=== PATIENT | male | born 1985 | race Caucasian/White ===

== ENCOUNTER → 2018-09-29 | Outpatient (REF) | payer OTHER, BC ==
[2018-09-30 08:49] LABS: MONO SCRN NEGATIVE (NEGATIVE)
[2018-10-02 15:52] LABS: Lyme Disease IgG Ab 18 kDa Ban Present (.); Lyme Disease IgG Ab 23 kDa Ban Absent (.); Lyme Disease IgG Ab 28 kDa Ban Absent (.); Lyme Disease IgG Ab 30 kDa Ban Absent (.); Lyme Disease IgG Ab 39 kDa Ban Present (.); Lyme Disease IgG Ab 41 kDa Ban Present (.); Lyme Disease IgG Ab 45 kDa Ban Absent (.); Lyme Disease IgG Ab 58 kDa Ban Present (.); Lyme Disease IgG Ab 66 kDa Ban Absent (.); Lyme Disease IgG Ab 93 kDa Ban Absent (.); Lyme Disease IgG West Blot Int Negative (.); Lyme Disease IgG/IgM Antibodie 2.38 ISR (0.00-0.90); Lyme Disease IgM Ab 23 kDa Ban Present (.); Lyme Disease IgM Ab 39 kDa Ban Absent (.); Lyme Disease IgM Ab 41 kDa Ban Absent (.); Lyme Disease IgM Ab Quantitati <0.80 index (0.00-0.79); Lyme Disease IgM West Blot Int Negative (.)
== END ==
LOC: M LAB REF 16:14
PROVIDERS: ATTEND Family Medicine
DX: R53.83 Other fatigue (principal); R51 Headache; R11.0 Nausea

== ENCOUNTER → 2018-10-30 | Outpatient (REF) | payer OTHER ==
[2018-10-30 13:39] LABS: BASO # 0.1 10^3/uL (0.0-0.2); BASO % 1.2 % (0.0-1.0); EOS # 0.1 10^3/uL (0.0-0.50); EOS % 1.4 % (0.0-3.0); HEMATOCRIT 44.5 % (42.0-52.0); LYMPH # 1.8 10^3/uL (1.5-4.5); MEAN CORPUSCULAR HEMOGLOBIN 29.9 pg (27.0-33.0); MEAN CORPUSCULAR HGB CONC 33.7 g/dl (32.0-36.5); MEAN CORPUSCULAR VOLUME 88.6 fl (80.0-96.0); MONO # 0.5 10^3/uL (0.0-0.8); MONO % 10.7 % (0.0-5.0); NEUTROPHILS # 1.9 10^3/uL (1.8-7.7); NEUTROPHILS % 44.5 % (36.0-66.0); PLATELET COUNT, AUTOMATED 222 10^3/uL (150-450); RED BLOOD COUNT 5.02 10^6/uL (4.30-6.10); WHITE BLOOD COUNT 4.2 10^3/uL (4.0-10.0)
[2018-10-30 14:35] LABS: ERYTHROCYTE SEDIMENTATION RATE 2 mm/hr (0-15)
== END ==
LOC: M SFHCPLAZ 10:21
PROVIDERS: ATTEND Internal Medicine Infectious Disease
DX: A69.20 Lyme disease, unspecified (principal)

== ENCOUNTER 2018-12-23 15:08 | Emergency (ER) | payer BC, OTHER ==
[~2018-12-23] VITALS: Ht 175.3 cm; Wt 90.1 kg
[2018-12-23] MEDS ORDERED: DOXY100C37 PO (15:57)
[2018-12-23] MEDS ORDERED: SULF1TAB93 PO (15:57)
[2018-12-23] MEDS ORDERED: PROBCAP14 PO (15:58)
[2018-12-23] MEDS ORDERED: ASPIRIN 81 MG CHEW TABLET PO ONE (17:00)
--- NOTE | 2018-12-23 17:38 | REP ---
Chest two views HISTORY: Chest pain Comparison: 05/16/2011 The lungs are clear. The heart is normal in size. The pulmonary vasculature is normal in appearance. The bony structure is intact. IMPRESSION: No acute disease. Electronically Signed by Nicholas Issa MD 12/23/2018 05:29 P
[2018-12-23 17:41] LABS: BASO # 0.1 10^3/uL (0.0-0.2); BASO % 1.8 % (0.0-1.0); EOS # 0.1 10^3/uL (0.0-0.50); HEMATOCRIT 47.5 % (42.0-52.0); HEMOGLOBIN 16.1 g/dl (13.5-17.5); LYMPH # 2.7 10^3/uL (1.5-4.5); LYMPH % 36.4 % (24.0-44.0); MEAN CORPUSCULAR HEMOGLOBIN 30.3 pg (27.0-33.0); MEAN CORPUSCULAR HGB CONC 33.9 g/dl (32.0-36.5); MEAN CORPUSCULAR VOLUME 89.3 fl (80.0-96.0); MONO # 0.6 10^3/uL (0.0-0.8); MONO % 8.1 % (0.0-5.0); NEUTROPHILS # 3.8 10^3/uL (1.8-7.7); NEUTROPHILS % 52.3 % (36.0-66.0); PLATELET COUNT, AUTOMATED 258 10^3/uL (150-450); RED BLOOD COUNT 5.32 10^6/uL (4.30-6.10); WHITE BLOOD COUNT 7.3 10^3/uL (4.0-10.0)
[2018-12-23 18:06] LABS: ALBUMIN 4.7 GM/DL (3.2-5.2); ALT/SGPT 41 U/L (12-78); BILIRUBIN,DIRECT < 0.1 MG/DL (0.0-0.2); BILIRUBIN,TOTAL 0.4 MG/DL (0.2-1.0); BLOOD UREA NITROGEN 12 MG/DL (7-18); CALCIUM LEVEL 9.7 MG/DL (8.5-10.1); CARBON DIOXIDE LEVEL 27 MEQ/L (21-32); CHLORIDE LEVEL 105 MEQ/L (98-107); CPK CREATINE PHOSPHOKINASE 197 U/L (39-308); CREATININE FOR GFR 1.13 MG/DL (0.70-1.30); GLOMERULAR FILTRATION RATE > 60.0 (>60); GLUCOSE, FASTING 79 MG/DL (70-100); MB/CK RELATIVE INDEX 1.12 (< OR =4); POTASSIUM SERUM 4.2 MEQ/L (3.5-5.1); SODIUM LEVEL 140 MEQ/L (136-145); THYROID STIMULATING HORMONE 0.748 uIU/ML (0.358-3.740); TOTAL PROTEIN 8.4 GM/DL (6.4-8.2); TROPONIN I < 0.02 NG/ML (< 0.10)
[2018-12-23 18:15] LABS: INR 1.1; PROTHROMBIN TIME 14.3 SECONDS (12.1-14.4)
[2018-12-23 18:24] VITALS: BP 120/65
--- NOTE | 2018-12-24 07:49 | ECGEPIP ---
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
== END 2018-12-23 18:29 | disposition home or self-care (01) ==
LOC: M ED 15:08
DX: R07.89 Other chest pain (principal); R06.02 Shortness of breath; F41.0 Panic disorder [episodic paroxysmal anxiety]; Z79.899 Other long term (current) drug therapy; Z79.2 Long term (current) use of antibiotics; Z88.0 Allergy status to penicillin; Z91.030 Bee allergy status

== ENCOUNTER → 2019-01-16 | Outpatient (REF) | payer OTHER ==
[~2019-01-16] MED LIST: DOXY100C37 PO; PROBCAP14 PO; SULF1TAB93 PO
== END ==
LOC: M LAB REF 12:09
PROVIDERS: ATTEND Family Medicine
DX: A69.20 Lyme disease, unspecified (principal); E78.00 Pure hypercholesterolemia, unspecified

== ENCOUNTER → 2019-03-31 | Outpatient (REF) | payer OTHER | LOC: M LAB REF 13:43 | PROVIDERS: ATTEND Family Medicine | DX: G31.84 Mild cognitive impairment of uncertain or unknown etiology (principal); H53.8 Other visual disturbances ==

== ENCOUNTER 2021-04-18 22:22 | Day surgery (SDC) | payer BC, OTHER ==
[~2021-04-18] VITALS: Ht 175.3 cm; Wt 96.3 kg
[~2021-04-18 22:22] MED LIST changes: +BACTDSTA PO; -DOXY100C37 PO; +DOXY1CAP62 PO; -SULF1TAB93 PO
[2021-04-19] VITALS (7 sets, daily range): BP systolic 114–131; BP diastolic 68–84
[2021-04-19 01:16] LABS: BASO # 0.1 10^3/uL (0.0-0.2); BASO % 0.4 % (0.0-1.0); EOS # 0.1 10^3/uL (0.0-0.5); EOS % 0.4 % (0.0-3.0); HEMATOCRIT 44.9 % (42.0-52.0); HEMOGLOBIN 15.6 g/dl (13.5-17.5); LYMPH # 2.7 10^3/uL (1.5-5.0); LYMPH % 19.5 % (24.0-44.0); MEAN CORPUSCULAR HEMOGLOBIN 30.7 pg (27.0-33.0); MEAN CORPUSCULAR HGB CONC 34.7 g/dl (32.0-36.5); MEAN CORPUSCULAR VOLUME 88.4 fl (80.0-96.0); MONO # 1.4 10^3/uL (0.0-0.8); MONO % 10.3 % (2.0-8.0); NEUTROPHILS # 9.6 10^3/uL (1.5-8.5); PLATELET COUNT, AUTOMATED 222 10^3/uL (150-450); RED BLOOD COUNT 5.08 10^6/uL (4.30-6.10); WHITE BLOOD COUNT 13.9 10^3/uL (4.0-10.0)
[2021-04-19] MEDS ORDERED: ISOVUE-370 76% 100ML VIAL As Ordered ONE (01:45)
[2021-04-19 02:19] LABS: ALBUMIN 4.4 GM/DL (3.2-5.2); ALT/SGPT 110 U/L (12-78); BILIRUBIN,DIRECT 0.1 MG/DL (0.0-0.2); BILIRUBIN,TOTAL 0.5 MG/DL (0.2-1.0); BLOOD UREA NITROGEN 16 MG/DL (7-18); CALCIUM LEVEL 9.4 MG/DL (8.5-10.1); CARBON DIOXIDE LEVEL 30 MEQ/L (21-32); CHLORIDE LEVEL 103 MEQ/L (98-107); CREATININE FOR GFR 1.05 MG/DL (0.70-1.30); GLOMERULAR FILTRATION RATE > 60.0 (>60); GLUCOSE, FASTING 98 MG/DL (70-100); LIPASE 140 U/L (73-393); POTASSIUM SERUM 4.1 MEQ/L (3.5-5.1); SODIUM LEVEL 137 MEQ/L (136-145); TOTAL PROTEIN 7.8 GM/DL (6.4-8.2)
--- NOTE | 2021-04-19 03:49 | REPVR ---
PROCEDURE INFORMATION: Exam: CT Abdomen And Pelvis With Contrast Exam date and time: 04/19/2021 1:33 AM Age: 35 years old Clinical indication: Abdominal pain; Localized; Right lower quadrant (rlq); Additional info: Rlq pain R/O appendicitis TECHNIQUE: Imaging protocol: Computed tomography of the abdomen and pelvis with contrast. Radiation optimization: All CT scans at this facility use at least one of these dose optimization techniques: automated exposure control; mA and/or kV adjustment per patient size (includes targeted exams where dose is matched to clinical indication); or iterative reconstruction. Contrast material: ISO; Contrast volume: 100 ml; Contrast route: INTRAVENOUS (IV); COMPARISON: CR Chest, 2 view PA, Lat 12/23/2018 5:27 PM FINDINGS: Liver: Normal. No mass. Gallbladder and bile ducts: Normal. No calcified stones. No ductal dilation. Pancreas: Normal. No ductal dilation. Spleen: Normal. No splenomegaly. Adrenal glands: Normal. No mass. Kidneys and ureters: Normal. No hydronephrosis. Stomach and bowel: Mild diverticulosis without diverticulitis. Appendix: There is abnormal thickening of the appendix measuring up to 1 cm with adjacent inflammatory change. No drainable fluid collection. Intraperitoneal space: Trace free fluid within the pelvis. No drainable fluid collection. Vasculature: Unremarkable. No abdominal aortic aneurysm. Lymph nodes: Unremarkable. No enlarged lymph nodes. Urinary bladder: Unremarkable as visualized. Reproductive: Unremarkable as visualized. Bones/joints: Unremarkable. No acute fracture. Soft tissues: Small fat containing umbilical hernia. IMPRESSION: Positive for acute appendicitis without evidence of rupture. Electronically signed by: Vamshi Taylor On 04/19/2021 03:49:00 AM
[2021-04-19] MEDS ORDERED: metroNIDAZOLE 500 MG in IV 1 EA IV ONE (04:05)
[2021-04-19] MEDS ORDERED: CIPROFLOXACIN 400 MG in IV 1 EA IV ONE (04:05)
[2021-04-19] MEDS ORDERED: NS 1,000 ML IV SCH (04:05)
[2021-04-19] MEDS ORDERED: HOME MED LIST COMPLETE! XX SCH (04:20)
[2021-04-19] MEDS ORDERED: ONDANSETRON 4MG/2ML VIAL IV PRN ×2 (04:45→19:05)
[2021-04-19] MEDS ORDERED: PERCOCET 5MG/325MG TAB PO PRN (04:45)
[2021-04-19] MEDS ORDERED: MORPHINE 2 MG/ML 1ML VIAL (J2270) IV PRN ×2 (04:45→19:05)
[2021-04-19] MEDS: LR 1,000 ML IV SCH ×3 (07:02→20:17)
--- NOTE | 2021-04-19 08:53 | HPEPDOC ---
General Surgery H&P Date of Admission Apr 19, 2021 Attending Physician: CHANO NICHOLAS MD History and Physical CHIEF COMPLAINT: abdominal pain HISTORY OF PRESENT ILLNESS: Patient is a healthy 35-year-old male who presented to the emergency room with about a 24-hour history of ongoing abdominal pain and discomfort. Reports started about midnight early Saturday. This started this morning epigastric discomfort that he has had previously. This persisted through the bleach maker and later on started moving towards the right lower quadrant area. He reports the pain is mostly a discomfort that is constant but worsens with movement. Some slight bloating but is able to pass gas. He was able to tolera te small amount of food intake without any exacerbation of the pain, nausea or vomiting or diarrhea but reports slight anorexia. Denies any fevers or chills. Denies any similar symptoms from family members. With the persistence of the discomfort he went to the emergency room at about midnight Saturday. ALLERGIES: Please see below. HOME MEDICATIONS: Please see below. PAST MEDICAL HISTORY: Denies any chronic medical problems. Reports prior Lyme's disease PAST SURGICAL HISTORY: 1. Lasik surgery. PERSONAL/SOCIAL HISTORY: Denies smoking, alcohol use, or recreational drug use. Reports recently his gave . 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 REVIEW OF SYSTEMS: GENERAL: Overall in good health, denies chills, fatigue, fever, weight gain and weight loss. HEENT: Denies blurred vision and double vision. Denies ear symptoms. Denies hoarseness. NECK: Denies any neck pain. CARDIOVASCULAR: Denies chest pain and palpitations. MUSCULOSKELETAL: Denies arthralgias, back pain and thrombophlebitis. SKIN: Denies rash. NEUROLOGIC: Denies headache, stroke and transient ischemic attack. PSYCHIATRIC: Denies anxiety and depression. ENDOCRINE: Denies thyroid disease. HEMATOLOGY/ONCOLOGY: Denies any bleeding or clotting disorder. HEART: Denies any chest pains, palpitations, paroxysmal dyspnea, orthopnea. PULMONARY: Denies chronic cough, dyspnea and wheezing. GASTROINTESTINAL: See HPI. GENITOURINARY: Denies dysuria, frequency, hematuria and nocturia. ENDOCRINE: Denies polydipsia, polyphagia, polyuria, heat or cold intolerance. INFECTIOUS: Denies any recent upper respiratory tract infection, UTI, need for use of antibiotics. NUTRITION: Reports fair appetite. PHYSICAL EXAMINATION: VITAL SIGNS: Please see below. GENERAL APPEARANCE: Patient seen at bedside, appears relatively comfortable. Not ill-appearing pleasant and cooperative. HEENT: Normocephalic, atraumatic. [place] palpebral conjunctivae. Anicteric sclerae. Lips moist. CHEST: No chest wall abnormalities. Normal respiratory motion/effort. NECK: Supple. No thyromegaly. No lymphadenopathies. LUNGS: Lung sounds are clear to auscultation bilaterally. No wheezing appreciated. HEART: No chest wall abnormalities. Heart rate and rhythm are regular. ABDOMEN: Abdomen is soft, nondistended. No surgical scars noted. No umbilical or groin herniations noted. He is mildly tender over the right lower quadrant area with minimal guarding. He is nontender on the other parts of the abdomen.. SKIN: Warm and dry. EXTREMITIES: Normal, no deformities, no edema. NEUROLOGICAL: Awake, alert and oriented, normal and equal extremity movements1 . ANCILLARIES: WBC 13.9. LABORATORY DATA: Please see below. MICROBIOLOGY: Please see below. IMAGING: CT abdomen and pelvis. I reviewed the imaging. This is consistent with noncomplicated appendicitis. IMPRESSION AND PLAN: Acute appendicitis with localized peritonitis Patient seen and examined. His history consistent with acute appendicitis. Ancillaries consistent with noncomplicated appendicitis. He does not show any severe signs of inflammatory response/sepsis from this. He has mild leukocytosis. I have started him on ciprofloxacin and metronidazole. He reports allergy to penicillin. I have discussed with him the general management for acute appendicitis. I have scheduled him for laparoscopic appendectomy. He will be kept n.p.o. while awaiting availability of the operating room. I discussed with the patient the details of the proposed procedure, the benefits of performing the procedure, the most common risks on doing the procedure. This may include risks of bleeding, subsequent abscess from the appendicitis, injury to nearby bowels and blood vessels with laparoscopy. I have given him a chance to ask questions, voice out concerns. Patient has agreed to proceed. Consent has been obtained Depending on findings in the operating room, as well as perioperative course, we may be able to sending him later on tonight or tomorrow morning. Vital Signs Vital Signs Date Time Temp Pulse Resp B/P (MAP) Pulse Ox O2 Delivery O2 Flow Rate FiO2 04/19/21 08:00 17 04/19/21 06:48 98.0 90 131/78 (95) 98 Room Air I&Os I&O- Last 24 Hours up to 6 AM 04/19/21 06:00 Intake Total 200 ml Output Total 800 ml Balance -600 ml Laboratory Data Labs 24H Laboratory Tests 2 04/19/21 00:51: Urine Color YELLOW, Urine Appearance CLEAR, Urine pH 5.0, Urine Specific [place] 1.026, Urine Protein NEGATIVE, Urine Glucose (UA) NEGATIVE, Urine Ketones NEGATIVE, Urine Blood NEGATIVE, Urine Nitrite NEGATIVE, Urine Bilirubin NEGATIVE, Urine Urobilinogen 0.2, Urine Leukocyte Esterase NEGATIVE, Urine WBC (Auto) 1, Urine RBC (Auto) 0, Urine Hyaline Casts (Auto) 0, Urine Bacteria (Auto) NEGATIVE, Urine Squamous Epithelial Cells 0, Urine Mucus (Auto) SMALL, Urine Sperm (Auto) 04/19/21 01:06: Immature Granulocyte % (Auto) 0.4, Neutrophils (%) (Auto) 69.0H, Lymphocytes (%) (Auto) 19.5L, Monocytes (%) (Auto) 10.3H, Eosinophils (%) (Auto) 0.4, Basophils (%) (Auto) 0.4, Neutrophils # (Auto) 9.6H, Lymphocytes # (Auto) 2.7, Monocytes # (Auto) 1.4H, Eosinophils # (Auto) 0.1, Basophils # (Auto) 0.1, Nucleated Red Blood Cells % (auto) 0.0, Anion Gap 4L, Glomerular Filtration Rate > 60.0, Calcium Level 9.4, Total Bilirubin 0.5, Direct Bilirubin 0.1, Aspartate Amino Transf (AST/SGOT) 39H, Alanine Aminotransferase (ALT/SGPT) 110H, Alkaline Phosphatase 50, Total Protein 7.8, Albumin 4.4, Albumin/Globulin Ratio 1.3, Lipase 140 04/19/21 04:17: Coronavirus (COVID-19)(PCR) NEGATIVE CBC/BMP Laboratory Tests 04/19/21 01:06 Home Medications No Active Prescriptions or Reported Meds Allergies Coded Allergies: Penicillins (Verified Allergy, Intermediate, hives, 12/23/18) bee venom protein (honey bee) (Verified Allergy, Unknown, 04/18/21) A-FIB/CHADSVASC A-FIB History Current/History of A-Fib/PAF?: No Current PO Anticoag Therapy: No CHANO NICHOLAS MD Apr 19, 2021 08:53
[2021-04-19] MEDS ORDERED: ACETAMINOPHEN TAB 650MG DOSE (2X325MG) PO PRN (13:30)
[2021-04-19] MEDS: metroNIDAZOLE 500 MG in IV 1 EA IV SCH ×2 (14:05→21:33)
[2021-04-19] MEDS ORDERED: MIDAZOLAM INJ 2MG/2ML VIAL (J2250 PER 1MG) As Ordered ONE (14:14)
[2021-04-19] MEDS ORDERED: fentaNYL 250 MCG/5 ML INJECTION (J3010) As Ordered ONE (14:14)
[2021-04-19] MEDS ORDERED: ONDANSETRON 4MG/2ML VIAL As Ordered ONE (14:14)
[2021-04-19] MEDS ORDERED: ROCURONIUM BROMIDE 50 MG/5 ML VIAL As Ordered ONE (14:14)
[2021-04-19] MEDS ORDERED: LIDOCAINE 2% 100MG/5ML SDV (FOR ANES.) As Ordered ONE (14:14)
[2021-04-19] MEDS ORDERED: SUGAMMADEX SODIUM 500 MG/5 ML VIAL (BRIDION) As Ordered ONE (14:14)
[2021-04-19] MEDS ORDERED: dexameTHASONE 4 MG/ML 1ML VIAL (J1100 PER 1MG) As Ordered ONE (14:14)
[2021-04-19] MEDS ORDERED: ACETAMINOPHEN 1000MG 100ML IV BTL (OFIRMEV) (J0131 PER 10MG) As Ordered ONE (14:15)
[2021-04-19] MEDS ORDERED: propofoL 200 MG/20 ML VIAL As Ordered ONE (14:15)
[2021-04-19] MEDS: CIPROFLOXACIN 400 MG in IV 1 EA IV SCH (17:00)
[2021-04-19] MEDS ORDERED: CIPROFLOXACIN/D5W 400 MG/200 ML BAG (J0744) As Ordered ONE (17:11)
[2021-04-19] MEDS ORDERED: LIDOCAINE 1% SDV 30ML VIAL As Ordered ONE (17:18)
[2021-04-19] MEDS ORDERED: BUPIVACAINE HCL 0.25% 30ML VIAL As Ordered ONE (17:18)
--- NOTE | 2021-04-19 18:42 | ROOPDOC ---
[facility] Report Of Operation Report of Operation DATE OF PROCEDURE: 04/19/21 PREPROCEDURE DIAGNOSES: Acute appendicitis. POSTPROCEDURE DIAGNOSES: Acute appendicitis. PROCEDURE PERFORMED: Laparoscopic appendectomy. SURGEON: Aren Almonte MD ANESTHESIA: General endotracheal anesthesia. ESTIMATED BLOOD LOSS: Approximately 10 mL. COMPLICATIONS: None. REMARKS: Relatively healthy 35-year-old male with 1 day history of right lower quadrant abdominal pain, found to have evidence of acute appendicitis. FINDINGS: Moderately thickened appendix all throughout its course, no gross perforation. Thickened mesoappendix. No free fluid. No perforation. No abscess SPECIMENS REMOVED: Appendix. DESCRIPTION OF PROCEDURE: Patient has been receiving ciprofloxacin 400 mg IV every 12 hours and metronidazole 500 mg IV every 8 hours perioperatively. Patient was brought to the operating room, placed supine on the table. Sequential compression device placed for DVT prophylaxis. General endotracheal anesthesia started. The abdomen prepped and draped in usual sterile fashion. We paused for a surgical timeout using both pre-incision safety checklist to verify correct patient, procedure site and additional clinical information prior to beginning the procedure Entry into the abdomen done through an incision above the umbilicus. Veress needle inserted on a controlled fashion. Intra-abdominal placement confirmed with saline drop technique. CO2 insufflation started to a pressure of 15 mmHg. Using the same incision a 5 mm port was placed under direct vision of laparoscope. Insertion site was inspected for injury and none was found. He was placed on a Trendelenburg position the right side tilted to about 30 to allow for better visualization of the appendix. Two working ports were placed, an 8 mm port at the suprapubic area and 5 mm port left lower quadrant area under direct vision. Operative findings: The appendix is located medial to the cecum underneath the terminal ileum. The mesoappendix is slightly shortened and markedly thickened. The appendix is thickened and distended throughout its course. There is no free fluid, no abscess. No evidence for perforation. Mildly distended fluid-filled small bowel. The appendix was grasped to pull the base of the appendix into view. The mesoappendix was divided using Harmonic scalpel down to the base. Two PDS E ndoloops were placed to ligate the appendix at its base then divided with a Harmonic Scalpel the stump cauterized. Stump appears healthy. Appendix was then delivered into an Endo Catch bag through the 8 mm port site at the suprapubic area which was bluntly enlarged to accommodate the bulky appendix.. After re- insufflation the surgical site was inspected for hemostasis. Surrounding areas of the abdomen and inspected for fluid collections or signs of injury. . The abdomen was deflated. All ports removed. The 8 mm suprapubic fascial defect repaired with 0 Vicryl in a mattress fashion. All skin incisions closed with 4-0 Monocryl in a subcuticular fashion. Steri-Strips and gauze dressing used for wound coverage. Patient was promptly awake and extubated and brought to recovery room stable. All counts of sponges and instruments verified to be correct AREN ALMONTE MD Apr 19, 2021 18:42
[2021-04-19] MEDS ORDERED: LR 1,000 ML IV SCH (19:05)
[2021-04-19] MEDS ORDERED: METOCLOPRAMIDE INJ 10MG/2ML VIAL (J2765 PER 1) IV PRN (19:05)
[2021-04-19] MEDS ORDERED: fentaNYL 100 MCG/2 ML INJECTION (J3010) IV PRN (19:05)
[2021-04-20] VITALS: BP 121/79
[2021-04-20 01:00] VITALS: BP 125/71
[2021-04-20 02:00] VITALS: BP 115/64
[2021-04-20] MEDS: CIPROFLOXACIN 400 MG in IV 1 EA IV SCH (04:14)
[2021-04-20] MEDS: LR 1,000 ML IV SCH (04:19)
[2021-04-20] MEDS: metroNIDAZOLE 500 MG in IV 1 EA IV SCH (05:51)
[2021-04-20 06:00] VITALS: BP 112/63
[2021-04-20 06:30] LABS: BASO % 0.1 % (0.0-1.0); HEMATOCRIT 41.3 % (42.0-52.0); HEMOGLOBIN 14.6 g/dl (13.5-17.5); LYMPH # 0.8 10^3/uL (1.5-5.0); LYMPH % 8.9 % (24.0-44.0); MEAN CORPUSCULAR HGB CONC 35.4 g/dl (32.0-36.5); MEAN CORPUSCULAR VOLUME 87.7 fl (80.0-96.0); MONO # 0.4 10^3/uL (0.0-0.8); MONO % 4.2 % (2.0-8.0); NEUTROPHILS # 7.6 10^3/uL (1.5-8.5); NEUTROPHILS % 86.1 % (36.0-66.0); PLATELET COUNT, AUTOMATED 206 10^3/uL (150-450); RED BLOOD COUNT 4.71 10^6/uL (4.30-6.10); WHITE BLOOD COUNT 8.8 10^3/uL (4.0-10.0)
[2021-04-20 06:54] LABS: BLOOD UREA NITROGEN 12 MG/DL (7-18); CALCIUM LEVEL 8.9 MG/DL (8.5-10.1); CARBON DIOXIDE LEVEL 27 MEQ/L (21-32); CHLORIDE LEVEL 106 MEQ/L (98-107); CREATININE FOR GFR 0.91 MG/DL (0.70-1.30); GLOMERULAR FILTRATION RATE > 60.0 (>60); GLUCOSE, FASTING 156 MG/DL (70-100); POTASSIUM SERUM 4.3 MEQ/L (3.5-5.1); SODIUM LEVEL 140 MEQ/L (136-145)
[2021-04-20] MEDS ORDERED: HYDR-4571 PO (08:59)
--- NOTE | 2021-04-20 09:11 | DS.PDOC ---
Discharge Summary General Date of Admission Apr 19, 2021 at 04:56 Date of Discharge 04/20/21 Discharge Summary General surgery. Dr. Almonte PROCEDURES PERFORMED DURING STAY: Laparoscopic appendectomy 04/19/[address] Almonte ADMITTING DIAGNOSES: 1. Acute appendicitis DISCHARGE DIAGNOSES: 1. Acute appendicitis status post laparoscopic appendectomy 04/19/[address] Almonte HISTORY OF PRESENT ILLNESS: The patient is a 35-year-old male with 1 day history of right lower quadrant abdominal pain found to have evidence of acute appendicitis. Status post laparoscopic appendectomy 04/19/[address] Almonte. HOSPITAL COURSE: The patient tolerated the procedure well. Abdominal pain has improved. He has only some mild tenderness around incision sites. All incision sites are clean/dry/intact. WBC 13.9 on admission, follow-up labs 04/20 indicate WBC 8.8. The patient has remained afebrile. Has been up out of bed in the room. The patient was advanced to clear liquids and to regular diet 04/20/2021. Pain has been well controlled, he has only used 1 dose of Percocet. The patient is felt stable for discharge 04/20 with outpatient follow-up. DISCHARGE MEDICATIONS: Please see below. ALLERGIES: Please see below. PHYSICAL EXAMINATION ON DISCHARGE: VITAL SIGNS: Please see below. GENERAL: No acute distress, resting comfortably in bed, sitting up having breakfast. HEENT: MMM CARDIOVASCULAR EXAMINATION: S1-S2 regular rate rhythm RESPIRATORY EXAMINATION: Clear to auscultation ABDOMINAL EXAMINATION: Soft, nondistended, some mild tenderness is noted around incision sites only, no discomfort in the right lower quadrant, all dressings are clean/dry/intact EXTREMITIES: No edema LABORATORY DATA: Please see below. IMAGING: CT abdomen/pelvis IMPRESSION: Positive for acute appendicitis without evidence of rupture. Electronically signed by: Vamshi Taylor On 04/19/2021 03:49:00 AM DISCHARGE PLAN: Discharge home DISCHARGE INSTRUCTIONS: Activity as tolerated with no heavy lifting, pushing, pulling greater than 20 pounds for 2 weeks Continue to keep incisions clean and dry, dry dressing daily as needed Okay to shower but no baths or swimming Follow-up with Dr. Almonte's office in 2 weeks. [place] 5/325 1 tablet p.o. every 6 hours as needed, #12, I stop reference #[id number] Okay to use Tylenol or ibuprofen as needed. DISCHARGE CONDITION: Stable. TIME SPENT ON DISCHARGE: Greater than 30 minutes. Vital Signs/I&Os Vital Signs Date Time Temp Pulse Resp B/P (MAP) Pulse Ox O2 Delivery O2 Flow Rate FiO2 04/20/21 08:00 16 04/20/21 06:00 97.1 83 112/63 (79) 97 Nasal Cannula 2.0 I&O- Last 24 Hours up to 6 AM 04/20/21 05:59 Intake Total 2950 ml Output Total 1560 ml Balance 1390 ml Laboratory Data Labs 24H Laboratory Tests 2 04/20/21 05:51: Immature Granulocyte % (Auto) 0.7, Neutrophils (%) (Auto) 86.1H, Lymphocytes (%) (Auto) 8.9L, Monocytes (%) (Auto) 4.2, Eosinophils (%) (Auto) 0.0, Basophils (%) (Auto) 0.1, Neutrophils # (Auto) 7.6, Lymphocytes # (Auto) 0.8L, Monocytes # (Auto) 0.4, Eosinophils # (Auto) 0.0, Basophils # (Auto) 0.0, Nucleated Red Blood Cells % (auto) 0.0, Anion Gap 7L, Glomerular Filtration Rate > 60.0, Calcium Level 8.9 CBC/BMP Laboratory Tests 04/20/21 05:51 Discharge Medications Scheduled PRN Hydrocodone/Acetaminophen (Hydrocodone-Acetamin 5-325 mg) 1 Each Tablet, 1 TAB PO Q6HP PRN for pain Allergies Coded Allergies: Penicillins (Verified Allergy, Intermediate, hives, 12/23/18) bee venom protein (honey bee) (Verified Allergy, Unknown, 04/18/21) Gissel Haines Apr 20, 2021 09:11
[2021-04-20 10:00] VITALS: BP 126/72
== END 2021-04-20 12:03 | disposition home or self-care (01) ==
LOC: M ED 22:22 → M MSPAV 22:23 → M SDC 22:23 → M ED INP 04-19 04:56 → UNDOADMOB 04-19 04:56 → ENRESERV 04-19 06:07 → M ED INP 04-19 06:45 → M MSPAV 04-19 06:45 → UNDODISOB 04-20 12:03 → M SDC 04-20 12:03
PROVIDERS: ATTEND Surgery
DX: K35.890 Other acute appendicitis without perforation or gangrene (principal); Z88.0 Allergy status to penicillin; Z91.030 Bee allergy status
CPT/HCPCS: 36415; 44970; 74177; 80048; 80076; 81001; 83690; 85025; 88304; 96365; 96366; 96367; 99285; J0131; J0744; J1100; J2250; J2405; J2765; J3010; Q9967; U0002

== ENCOUNTER → 2025-01-27 | Outpatient (REF) | payer BC ==
[~2025-01-27] MED LIST changes: +DOXY-441 PO; -DOXY1CAP62 PO; +HYDR-4571 PO
== END ==
LOC: M LAB REF 12:08
PROVIDERS: ATTEND Family Medicine
DX: R74.01 Elevation of levels of liver transaminase levels (principal)

== ENCOUNTER → 2025-02-02 | Outpatient (REF) | payer BC ==
[2025-02-02 13:49] LABS: HEPATITIS C VIRUS ABY INDEX < 0.02 INDEX (<0.8)
[2025-02-03 13:17] LABS: ALPHA 1 ANTITRYPSIN 112 mg/dL (83-199); CERULOPLASMIN 20.0 mg/dL (14-30)
[2025-02-03 13:33] LABS: HEPATITIS B SURF AB QUANT < 5 mIU/mL (> OR = 10)
[2025-02-03 13:48] LABS: HEPATITIS B CORE ANTIBODY IGG NON-REACTIVE (NON-REACTIVE)
[2025-02-04 07:53] LABS: ANA PATTERN 2 Nuclear, Speckled; ANA TITER 2 1:40 titer (NEGATIVE)
== END ==
LOC: M LAB REF 12:09
PROVIDERS: ATTEND Family Medicine
DX: R74.01 Elevation of levels of liver transaminase levels (principal)